=== PATIENT | female | born 1955 | race African-American/Black ===

== ENCOUNTER 2016-12-14 08:03 | Emergency (ER) | payer OTHER ==
--- NOTE | ~2016-12-14 | CR63 ---
[facility] A Service of [facility] RADIOLOGY TEXT RESULTS PATIENT: MASOUD DOBBINS LOCATION: [facility] : 59 UNIT #: [id number] AGE: [address]: Socrates Basilio SEX: F ORDER DR: [id number] [facility] [address] [place], [place] [address] [id number] E MR#: [id number] Acc #: [id number] NAME: MASOUD DOBBINS. : 1955 SEX: F STUDY DATE/TIME: 12/14/2016 8:11 UNIT: [facility] ROOM: STUDY DESCRIPTION: CR Chest 2 View Attending Physician: Socrates Basilio Ordering Physician: Socrates Basilio Primary Care Physician: Jenaro Vargas M.D. MEDICAL IMAGING REPORT This report is preliminary unless electronic signature is present EXAM Chest x-ray, 12/14/2016 HISTORY 61-year-old female in the ED complaining of 1-week history of shortness of air, cough, congestion and back pain. TECHNIQUE PA and lateral upright chest series. FINDINGS The heart size and pulmonary vascularity are normal. The lungs are expanded and clear. No visible pulmonary infiltrate or pleural effusion. No change since 08/16/2015. IMPRESSION Negative chest. No change since 08/16/2015. Dictated by... Luis Miguel Bill M.D. THIS IS AN ELECTRONICALLY VERIFIED REPORT Luis Miguel Bill M.D. at 12/14/2016 3:56 PM JEWEL/sammy TD: 12/14/2016 10:18 JOB #: [id number] MEDICAL IMAGING REPORT Page 1 of 1 COPY
[2016-12-14 07:49] LABS: INFLUENZA A NEG (NEG); INFLUENZA B NEG (NEG)
[~2016-12-14 08:03] MED LIST: ALBUTEROL17 GM INH; ALPRAZOLAM PO; ASPIRIN325 M1 PO; BENZONATATE PO; COREG3.125 MG PO; DOXYCYCLINE150 MG PO; GLUCOTROL PO; GUAIFENESIN600 MG PO; LISINOPRIL PO; LOVASTATIN20 MG PO; METFORMIN PO; NAPHAZOLINE; NAPROXEN PO; NIACIN SR500 MG PO; PHENIRAMINE; POLYMYXIN B/TMP10 M1 OP; PREDNISONE1 MG PO; VICODIN PO; VOLTAREN50 MG PO; XANAX0.5 MG PO; ZESTRIL40 MG PO; ZITHROMAX1 G/PKT PO; ZYRTEC10 M2 PO
== END 2016-12-14 09:34 | disposition home or self-care (01) ==
LOC: CFTX 08:03
PROVIDERS: Emergency Medicine
DX: J06.9 Acute upper respiratory infection, unspecified (principal); E11.9 Type 2 diabetes mellitus without complications; I10 Essential (primary) hypertension; K21.9 Gastro-esophageal reflux disease without esophagitis; Z88.1 Allergy status to other antibiotic agents; Z98.890 Other specified postprocedural states
CPT/HCPCS: 71020; 87651; 87804; 94640; 99284

== ENCOUNTER 2017-03-31 09:42 | Emergency (ER) | payer OTHER ==
[~2017-03-31] VITALS: Ht 154.9 cm; Wt 103.4 kg
--- NOTE | ~2017-03-31 | CT16 ---
[facility] A Service of [facility] & [facility] RADIOLOGY TEXT RESULTS PATIENT: MASOUD DOBBINS LOCATION: [facility] : 59 UNIT #: [id number] AGE: [address]: Jamie Caceres DO SEX: F ORDER DR: [id number] [facility] [address] [place], [place] [address] [id number] E MR#: [id number] Acc #: [id number] NAME: MASOUD DOBBINS. : 1955 SEX: F STUDY DATE/TIME: 03/31/2017 15:01 UNIT: [facility] ROOM: STUDY DESCRIPTION: CT Angio Chest for PE Attending Physician: Jamie Caceres D.O. Ordering Physician: Jamie Caceres D.O. Primary Care Physician: Jenaro Vargas M.D. MEDICAL IMAGING REPORT This report is preliminary unless electronic signature is present EXAM Chest CTA; 03/31/2017. INDICATIONS Cough and fatigue and congestion since 02/11/2017. Abnormal chest x-ray today showing density in the medial left base. TECHNIQUE Axial images were obtained through the chest following IV contrast administration. 3-D reformats were obtained. This CT exam was performed with one or more of the following radiation dose reduction techniques: automatic exposure control, adjustment of mA and/or kV according to patient size, and iterative reconstruction. COMPARISON Comparison is made with chest CT from 01/23/2015. FINDINGS There is no aortic dissection or aortic aneurysm. There is no pulmonary embolism. No pleural or pericardial effusion. No adenopathy. There is a tiny focus of ground-glass opacity in the right upper lobe. This is probably infectious or inflammatory. Consider follow up chest CT in 6 months to document improvement or resolution. The lungs are otherwise clear. Upper abdomen shows fatty infiltration of the liver. IMPRESSION 1. No pulmonary embolism or aortic dissection. No aortic aneurysm. 2. Lungs are clear except for a single small focus of ground-glass opacity in the right upper lobe. This is likely infectious or inflammatory. Consider chest CT followup in 6 months as low grade pulmonary malignancy could potentially have this appearance. 3. Hepatic steatosis. STS. [facility] A Service of [facility] & [facility] RADIOLOGY TEXT RESULTS PATIENT: MASOUD DOBBINS LOCATION: [facility] #: [id number] : 59 UNIT #: [id number] AGE: [address]: Jamie Caceres DO SEX: F ORDER DR: Dictated by... Eleno Ludwig Jr., M.D. THIS IS AN ELECTRONICALLY VERIFIED REPORT Eleno Ludwig Jr., M.D. at 04/01/2017 7:16 AM ROBERTA/joao TD: 03/31/2017 16:47 JOB #: [id number] MEDICAL IMAGING REPORT Page 1 of 1 COPY
--- NOTE | ~2017-03-31 | CT71 ---
[facility] A Service of [facility] RADIOLOGY TEXT RESULTS PATIENT: MASOUD DOBBINS LOCATION: [facility] : 59 UNIT #: [id number] AGE: [address]: Jamie Caceres DO SEX: F ORDER DR: [id number] [facility] [address] [place], [place] [address] [id number] E MR#: [id number] Acc #: [id number] NAME: MASOUD DOBBINS : 1955 SEX: F STUDY DATE/TIME: 03/31/2017 10:55 UNIT: [facility] ROOM: STUDY DESCRIPTION: CT Head Wo Contrast Attending Physician: Jamie Caceres D.O. Ordering Physician: Jamie Caceres D.O. Primary Care Physician: Jenaro Vargas M.D. MEDICAL IMAGING REPORT This report is preliminary unless electronic signature is present EXAM Head CT 03/31 INDICATIONS Headache for the last 3 days. No trauma. FINDINGS Axial images were obtained from the base to the vertex without contrast. Comparison made with 09/23/2011. This CT exam was performed with one or more of the following radiation dose reduction techniques: automatic exposure control, adjustment of mA and/or kV according to patient size, and iterative reconstruction. Ventricular size and configuration remain normal. Scattered low-density changes in the white matter suggest chronic small vessel ischemic disease. This is mild. There is no acute infarct or hemorrhage. There are no masses. There is acute left maxillary sinusitis. No skull fractures. IMPRESSION No acute intracranial abnormality. There is acute left maxillary sinusitis. Dictated by... Eleno Ludwig Jr., M.D. THIS IS AN ELECTRONICALLY VERIFIED REPORT Eleno Ludwig Jr., M.D. at 03/31/2017 4:39 PM ROBERTA/wilfred TD: 03/31/2017 12:55 JOB #: [id number] [facility] A Service [facility] RADIOLOGY TEXT RESULTS PATIENT: MASOUD DOBBINS [facility] #: [id number] : 59 UNIT #: [id number] AGE: [address]: Jamie Caceres DO SEX: F ORDER DR: MEDICAL IMAGING REPORT Page 1 of 1 COPY
--- NOTE | ~2017-03-31 | CR63 ---
[facility] A Service of [facility] & [facility] RADIOLOGY TEXT RESULTS PATIENT: MASOUD DOBBINS LOCATION: [facility] : 59 UNIT #: [id number] AGE: [address]: Jamie Caceres DO SEX: F ORDER DR: [id number] [facility] [address] [place], [place] [address] [id number] P MR#: [id number] Acc #: [id number] NAME: MASOUD DOBBINS : 1955 SEX: F STUDY DATE/TIME: 03/31/2017 UNIT: [facility] ROOM: STUDY DESCRIPTION: CR Chest 2 View Attending Physician: Jamie Caceres D.O. Ordering Physician: Jamie Caceres D.O. Primary Care Physician: Jenaro Vargas M.D. MEDICAL IMAGING REPORT This report is preliminary unless electronic signature is present EXAM Chest 2 views 03/31/2017 1043 hours. HISTORY 61-year-old woman with cough, congestion, and headache for 1 week. COMPARISON 12/14/2016 FINDINGS Portable upright chest is limited by large body habitus and slightly low lung volumes. Heart size is stable. There is retrocardiac density medially abutting the descending thoracic aorta. This could represent a new tortuosity or aneurysm of the descending thoracic aorta or new pulmonary parenchymal density at the left base. This represents a change from previous study. Alternative possibilities include a hiatal hernia. CT abdomen and pelvis exam, 04/10/2016, did not demonstrate a hiatal hernia. Followup 2-view chest film is recommended. Chest CT may eventually be warranted. IMPRESSION 1. Heart size is within normal limits. 2. There is a medial left retrocardiac density abutting the descending thoracic aorta with a well-defined left lateral curved margin not seen on comparison study of 12/14/2016. This density could be related to a tortuous or ectatic descending thoracic aorta representing a change from prior exam. Aneurysm is possible. Alternatively, this could represent pleural or parenchymal density such as infection or mass. Density such as this could be related to hiatal hernia. However, no hiatal hernia is seen on the lateral film, and the patient did not have a hiatal hernia on this CT abdomen of 04/10/2016. Correlate with clinical symptoms. Consider followup chest CT to reassess. [facility] A Service of [facility] & [facility] RADIOLOGY TEXT RESULTS PATIENT: MASOUD DOBBINS LOCATION: [facility] #: [id number] : 59 UNIT #: [id number] AGE: [address]: Jamie Caceres DO SEX: F ORDER DR: STAT * RESULT Dictated by... Cristina Hu M.D. THIS IS AN ELECTRONICALLY VERIFIED REPORT Cristina Hu M.D. at 03/31/2017 2:34 PM HODA/luc TD: 03/31/2017 11:13 JOB #: [id number] MEDICAL IMAGING REPORT Page 1 of 1 COPY
[2017-03-31 10:36] LABS: BASOPHIL# 0.3 X10e3 (0-0.3); BASOPHIL% 4.3 % (0-2.5); EOSINOPHIL# 0.4 X10e3 (0-0.7); EOSINOPHIL% 5.7 % (0.0-7.0); HEMATOCRIT 33.7 % (35.0-45.0); LYMPHOCYTE# 1.8 X10e3 (1.0-3.5); LYMPHOCYTE% 27.4 % (17.0-45.0); MEAN CELL VOLUME 78.2 FL (83-96); MEAN CORPUSCULAR HEMOGLOBIN 25.6 PG (28-34); MEAN CORPUSCULAR HGB CONC 32.7 g/dL (30-36); MEAN PLATELET VOLUME 7.6 FL (6.5-11.5); MONOCYTE# 0.5 X10e3 (0-1.0); NEUTROPHIL# 3.7 X10e3 (1.5-7.1); NEUTROPHIL% 54.6 % (40-75); PLATELET COUNT 381 X10e3 (140-420); RED CELL DISTRIBUTION WIDTH 16.7 % (11.0-15.5); WHITE BLOOD COUNT 6.7 X10e3 (4.0-10.5)
[2017-03-31 10:38] LABS: DIFF IND NO
[2017-03-31 10:50] LABS: PARTIAL THROMBOPLASTIN TIME 26.8 SECONDS (23.5-31.3); PROTHROMBIN TIME (PATIENT) 10.4 SECONDS (10.0-11.7)
[2017-03-31 11:08] LABS: BUN/CREATININE RATIO 23.33; CALCIUM SERUM 9.6 mg/dL (8.4-10.2); CREATININE SERUM 0.6 mg/dL (0.6-1.4); GLOM FILT RATE Estimated 115.6 mL/min (>60); POTASSIUM 4.1 mmol/L (3.5-5.1)
[2017-03-31 11:48] LABS: POC - CKMB <1.0 ng/mL (0.0-7.9); POC - TROPONIN <0.05 ng/mL (<=0.05)
== END 2017-03-31 16:34 | disposition home or self-care (01) ==
LOC: CED 09:42
PROVIDERS: Emergency Medicine
DX: J01.90 Acute sinusitis, unspecified (principal); E11.9 Type 2 diabetes mellitus without complications; I10 Essential (primary) hypertension; K21.9 Gastro-esophageal reflux disease without esophagitis; F41.9 Anxiety disorder, unspecified; Z90.710 Acquired absence of both cervix and uterus; Z88.2 Allergy status to sulfonamides
CPT/HCPCS: 36415; 70450; 71020; 71275; 80048; 82553; 84484; 85025; 85610; 85730; 96361; 96374; 96375; 99285; Q9967